=== PATIENT | male | born 1950 | race Two or more races ===

== ENCOUNTER 2018-11-15 12:40 | Emergency (ER) | payer MEDICARE ==
[~2018-11-15] VITALS: Ht 165.1 cm; Wt 70.8 kg
[2018-11-15] MEDS ORDERED: MORPHINE SULFATE INJ 4 MG/ML DISP.SYRIN ONE ×2 (13:12→13:54)
[2018-11-15] MEDS ORDERED: ONDANSETRON HCL/PF 4 MG/2 ML VIAL ONE (13:12)
[2018-11-15] MEDS ORDERED: NITROGLYCERIN PACKET 1 GM PACKET ONE (13:13)
--- NOTE | 2018-11-15 13:20 | NUR ---
PT BIB [facility] C/O SEVERE MIDSTERNAL INTERMITTENT NONRADIATING CP, WORSE THAN USUAL. 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 PT IS HYPERVENTILATING, CRYING, MOANING, WRITHING IN PAIN. REFUSES TO ANSWER QUESTIONS. SKIN WARM DRY. SR ON TELE MONITOR. PLACED ON 2LPM O2 FOR SUPPORT. IN ER BED 07 ON MONITOR. IV PRESENT EQUALIZER OPERATOR, FLUSHES EASILY, BRISK BLOOD RETURN NOTED.
[2018-11-15 13:26] LABS: BASOPHILS # (AUTO) 0.1 /CMM (0.0-0.2); BASOPHILS % (AUTO) 0.8 % (0.0-2.0); EOSINOPHILS % (AUTO) 0.4 % (0.0-6.0); HEMATOCRIT 45 % (39-51); HEMOGLOBIN 15.6 g/dL (13.5-17.5); LYMPHOCYTES # (AUTO) 1.6 /CMM (0.8-4.8); LYMPHOCYTES % (AUTO) 19.1 % (20.0-44.0); MEAN CORPUSCULAR HGB CONC 35 g/dl (31.0-36.0); MEAN CORPUSCULAR VOLUME 87 fL (80-96); MONOCYTES # (AUTO) 0.7 /CMM (0.1-1.30); MONOCYTES % (AUTO) 8.2 % (2.0-12.0); NEUTROPHILS % (AUTO) 71.5 % (43.0-81.0); PLATELET COUNT (AUTO) 225 /CMM (150-450); RED BLOOD CELL COUNT(AUTO) 5.19 MIL/uL (4.5-6.0); WHITE BLOOD COUNT (AUTO) 8.4 K/uL (4.3-11.0)
[2018-11-15] MEDS ORDERED: NITROGLYCERIN PACKET 1 GM PACKET TD ONE (13:30)
[2018-11-15] MEDS ORDERED: MORPHINE SULFATE INJ 2 MG/ML DISP.SYRIN IV ONE ×2 (13:30→14:00)
[2018-11-15] MEDS ORDERED: ONDANSETRON HCL/PF 4 MG/2 ML VIAL IVP ONE (13:30)
[2018-11-15 13:34] LABS: CALCIUM, SERUM 8.5 mg/dL (8.5-10.1); POTASSIUM 3.8 mmol/L (3.5-5.1)
[2018-11-15] MEDS ORDERED: CT SWABBABLE VALVE TRANS SET 1 EA INFUS.SET MC ONE (14:08)
[2018-11-15] MEDS ORDERED: IV NS 0.9% 250 ML IV ONE (14:08)
[2018-11-15] MEDS ORDERED: IOHEXOL-300 100 ML VIAL IV ONE (14:08)
--- NOTE | 2018-11-15 14:08 | NUR ---
PT TRANSPORTED TO CT SCAN
--- NOTE | 2018-11-15 14:30 | NUR ---
PT WAS COMPLAINING OF PAIN AT IV SITE WHILE FLUSHING PRIOR TO CT CONTRAST DESPITE FLUSHING IN EASILY AND NO SIGNS OF INFILTRATION. REPORTED TO CT SCAN AND STARTED NEW LAC 18G PIV.
--- NOTE | 2018-11-15 14:56 | NUR ---
Called Dr. Ornelas for CT report clarification.
[2018-11-15] MEDS ORDERED: HEPARIN SODIUM, PORCINE 5000 UNITS/1 ML VIAL ONE (15:12)
[2018-11-15] MEDS ORDERED: ASPIRIN 81 MG TAB.CHEW ONE (15:13)
[2018-11-15] MEDS ORDERED: METOPROLOL TARTRATE 25 MG TABLET ONE (15:13)
--- NOTE | 2018-11-15 15:15 | NUR ---
received a call from Trang at [facility] and was told that this pt has been accepted under Dr. Cole. Unfortunately [facility] had no available CCT units for this call. Was told to call local 911 as transport instead. Will contact nearby ambulance companies before calling [facility]
--- NOTE | 2018-11-15 15:23 | NUR ---
Called [facility] for code 3 ALS transport and was told that they had no available units
[2018-11-15 15:24] VITALS: BP 118/74
[2018-11-15] MEDS ORDERED: HEPARIN INFUSION/D5W 500 ML IV ONE (15:24)
[2018-11-15] MEDS ORDERED: ATORVASTATIN 40 MG TABLET PO ONE (15:30)
[2018-11-15] MEDS ORDERED: HEPARIN SODIUM, PORCINE 5000 UNITS/1 ML VIAL IV ONE (15:30)
[2018-11-15] MEDS ORDERED: METOPROLOL TARTRATE 25 MG TABLET PO ONE (15:30)
[2018-11-15] MEDS ORDERED: HEPARIN INFUSION/D5W 500 ML IV PRN (15:30)
[2018-11-15] MEDS ORDERED: ASPIRIN 81 MG TAB.CHEW PO ONE (15:30)
--- NOTE | 2018-11-15 15:30 | NUR ---
ADDENDUM: Intravenous End Time Documentation: Heparin drip: start time:1530 PM ; end time:infusing while transfer to [facility] : IV site:LW # 20 Port # 2
--- NOTE | 2018-11-15 15:30 | NUR ---
Per cardiology notes: Plan -urgent transfer to cardiac cath capable center -heparin bolus/drip -will give another ASA 162mg -lipitor -metoprolol 25mg -if still has chest pain and BP tolerates, can start NTG JACQUIE Padilla [facility] 2017 15:11 <Electronically signed by JACQUIE GOLD MD>11/15/18 [id number]
--- NOTE | 2018-11-15 15:50 | NUR ---
PT TRANSPORTED TO [facility] AT THIS TIME VIA [facility] UN[facility] WITH RN ACCOMPANYING. VSS. ON TELE MONITOR. HEPARIN DRIP ONGOING. NO NEURO DEFICITS NOTED. PT SEEMS OVERWHELMED AND SLIGHTLY CONFUSED BY THE PLAN OF CARE, PT'S REPORTS HE HAS SEEMED VERY SLIGHTLY CONFUSED SINCE RECEIVING MORPHINE.
== END 2018-11-15 18:32 | disposition short-term general hospital (02) ==
LOC: ER 12:44
DX: I21.4 Non-ST elevation (NSTEMI) myocardial infarction (principal); F41.9 Anxiety disorder, unspecified
CPT/HCPCS: 36415; 71045-TC; 71260-TC; 80048-TC; 84484-TC; 85025-TC; 85730-TC; A4606; J1644; J2270; J2405; J7050; Q9967; Z7610